=== PATIENT | female | born 2000 | race Caucasian/White ===

== ENCOUNTER 2024-12-18 11:51 | Outpatient (REF) | payer MEDICAID, SELFPAY ==
[2024-12-20 13:04] LABS: Chlamydia Result Negative (Negative); GC Result Negative (Negative)
== END 2024-12-18 11:52 | disposition home or self-care (01) ==
LOC: LBN 11:51
PROVIDERS: Visit Provider Physician Assistant
DX: N39.0 Urinary tract infection, site not specified (principal); N76.0 Acute vaginitis; Z00.00 Encounter for general adult medical examination without abnormal findings; B96.89 Other specified bacterial agents as the cause of diseases classified elsewhere
CPT/HCPCS: 87491; 87591; 87086; 87480; 87510; 87660

== ENCOUNTER 2025-07-13 19:39 | Outpatient (REF) | payer MEDICAID, SELFPAY | END 2025-07-13 19:40 | disposition home or self-care (01) | LOC: LBN 19:39 | PROVIDERS: Visit Provider Obstetrics & Gynecology | DX: R35.0 Frequency of micturition (principal) | CPT/HCPCS: 87086 ==